=== PATIENT | male | born 1970 | race Caucasian/White ===

== ENCOUNTER 2020-04-30 09:49 | Emergency (ER) | payer MEDICAID ==
[~2020-04-30] VITALS: Ht 165.1 cm; Wt 99.8 kg
[2020-04-30 09:58] VITALS: BP 135/71; Ht 165.1 cm; Wt 99.8 kg
== END 2020-04-30 12:11 | disposition home or self-care (01) ==
LOC: ED 09:49
DX: M25.511 Pain in right shoulder (principal); G89.29 Other chronic pain; E11.9 Type 2 diabetes mellitus without complications; Z90.49 Acquired absence of other specified parts of digestive tract